=== PATIENT | male | born 1970 | race Caucasian/White ===

== ENCOUNTER 2022-02-14 14:26 | Emergency (ER) | payer OTHER ==
[2022-02-14 14:30] VITALS: BP 130/78; PULSE 92; RESP 14; TEMP 97.8
--- NOTE | 2022-02-14 14:53 | XR ---
EXAMINATION TYPE: XR foot complete RT DATE OF EXAM: 02/14/2022 COMPARISON: NONE HISTORY: Pain TECHNIQUE: Three views are submitted. FINDINGS: The osseous structures are intact. There is no acute fracture or dislocation. Joint spaces are p reserved. IMPRESSION: 1. No acute fracture or dislocation. If symptoms persist, follow-up exam in 7 to 10 days could be ob tained.
--- NOTE | 2022-02-14 16:07 | ED ---
Lower Extremity Injury HPI - General Chief Complaint: Extremity Injury, Lower Stated Complaint: R foot injury Time Seen by Provider: 02/14/22 14:30 Source: patient Mode of arrival: ambulatory Limitations: no limitations - History of Present Illness Initial Comments: 51-year-old male presents to the emergency department after he dropped a lawnmower trailer on his right fifth toe. Injury happened yesterday. Patient has been able to ambulate however it has been painful. Patient is wearing a loose fitting shoe. He has been able to ambulate. Taking Motrin for pain. He does have bruising and swelling to the fifth digit. Denies any other injuries. No other alleviating, precipitating or modifying factors - Related Data Home Medications Medication Instructions Recorded Confirmed lisinopriL [Zestril] 5 mg PO DAILY 05/09/14 10/10/15 ALPRAZolam [Xanax] 2 mg PO HS 10/10/15 10/10/15 HYDROcodone/APAP 10-325MG [[place] 1 tab PO Q6H PRN 10/10/15 10/10/15 10-325] Previous Rx's Medication Instructions Recorded Hydrocodone/Acetaminophen [[place] 1 each PO Q6HR PRN #8 tab 10/10/15 5-325] Ibuprofen [Motrin] 800 mg PO Q6HR PRN #30 tab 10/10/15 HYDROcodone/APAP 7.5-325MG [[place] 1 tab PO Q6HR PRN 3 Days #12 tab 02/14/22 7.5-325] Allergies Allergy/AdvReac Type Severity Reaction Status Date / Time No Known Allergies Allergy Verified 02/14/22 14:30 Review of Systems ROS Statement: Those systems with pertinent positive or pertinent negative responses have been documented in the HPI. ROS Other: All systems not noted in ROS Statement are negative. Past Medical History Past Medical History: Hypertension Additional Past Medical History / Comment(s): back pain History of Any Multi-Drug Resistant Organisms: None Reported Past Surgical History: No Surgical Hx Reported Past Psychological History: Anxiety Smoking Status: Current every day smoker Past Alcohol Use History: Rare Past Drug Use History: Marijuana General Exam Limitations: no limitations General appearance: alert, in no apparent distress Extremities exam: Present: tenderness (to the 5th digit right foot. digit is erythematous. compartments are soft. normal cap refill time. intact sensation over medial, dorsal and lateral foot. ) Course Vital Signs 02/14/22 14:27 Temperature 97.8 F Pulse Rate 92 Respiratory 14 Rate Blood Pressure 130/78 O2 Sat by Pulse 97 Oximetry Medical Decision Making - Medical Decision Making Upon arrival patient was seen in [facility]. Thorough history and physical exam was performed. X-ray was performed which demonstrates no acute fractures. Patient is placed in a re-shoe. Given a prescription for [place]. Instructed to alternate taking this with Motrin for pain control. Follow up with his primary care doctor in 7-10 days to have repeat imaging if the pain persists. Return for any new or worsening symptoms. Patient agrees treatment plan he is discharged home in stable condition Disposition Clinical Impression: Right foot pain, Crush injury Disposition: HOME SELF-CARE Condition: Stable Instructions (If sedation given, give patient instructions): Foot Sprain (ED) Additional Instructions: Please rest, ice and elevate the extremity. Alternate taking Motrin and [place] every 4 hours. Return in 7-10 days if your pain persists. Prescriptions: HYDROcodone/APAP 7.5-325MG [[place] 7.5-325] 1 tab PO Q6HR PRN 3 Days #12 tab PRN Reason: Pain Is patient prescribed a controlled substance at d/c from ED?: Yes When asked, does pt state using other controlled substances?: No If opioid is for acute pain is fill amount 7 days or less?: No If Rx opioid, was Start Talking consent form obtained?: No Referrals: None,Stated [Primary Care Provider] - 1-2 days Time of Disposition: 16:07
== END 2022-02-14 16:13 | disposition home or self-care (01) ==
LOC: EC 14:26
DX: M79.671 Pain in right foot (principal); I10 Essential (primary) hypertension; F17.200 Nicotine dependence, unspecified, uncomplicated
CPT/HCPCS: 99283

== ENCOUNTER 2023-09-01 16:05 | Emergency (ER) | payer OTHER ==
[2023-09-01 16:40] VITALS: TEMP 97.7
--- NOTE | 2023-09-01 17:02 | ED ---
Fall HPI - General Source: patient Mode of arrival: ambulatory <Mo Welch - Last Filed: 09/01/23 17:02> <Padmini Huitron - Last Filed: 09/01/23 18:57> - General Chief Complaint: Fall Stated Complaint: fall-[facility] - History of Present Illness Initial Comments: 52-year-old male presenting to the ED with a chief complaint of left shoulder injury. 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 States that he slipped on water causing him to fall onto his left side. States that his armpit landed directly onto a side chart. Now notes pain of the left shoulder/left chest where he landed. No head injury at this time. No other complaints. (Mo Welch) Patient is a 52-year-old male presented ER with chief complaint of left shoulder injury. Patient states he slipped on water at work and fell on a cart landing on his left shoulder/side. Patient denies any other injuries, blood thinner use, loss of consciousness. Patient reports he is in 9 out of 10 pain. Patient states he has limited range of motion due to the pain. Patient denies any paresthesias. (Padmini Huitron) - Related Data Home Medications Medication Instructions Recorded Confirmed lisinopriL [Zestril] 5 mg PO DAILY 05/09/14 10/10/15 ALPRAZolam [Xanax] 2 mg PO HS 10/10/15 10/10/15 HYDROcodone/APAP 10-325MG [[place] 1 tab PO Q6H PRN 10/10/15 10/10/15 10-325] Previous Rx's Medication Instructions Recorded Hydrocodone/Acetaminophen [[place] 1 each PO Q6HR PRN #8 tab 10/10/15 5-325] Ibuprofen [Motrin] 800 mg PO Q6HR PRN #30 tab 10/10/15 HYDROcodone/APAP 7.5-325MG [[place] 1 tab PO Q6HR PRN 3 Days #12 tab 02/14/22 7.5-325] Allergies Allergy/AdvReac Type Severity Reaction Status Date / Time No Known Allergies Allergy Verified 09/01/23 16:36 Review of Systems ROS Other: All systems not noted in ROS Statement are negative. <Mo Welch - Last Filed: 09/01/23 17:02> ROS Other: All systems not noted in ROS Statement are negative. <Padmini Huitron - Last Filed: 09/01/23 18:57> ROS Statement: Those systems with pertinent positive or pertinent negative responses have been documented in the HPI. Past Medical History Past Medical History: Hypertension Additional Past Medical History / Comment(s): back pain History of Any Multi-Drug Resistant Organisms: None Reported Past Surgical History: No Surgical Hx Reported Past Psychological History: Anxiety Smoking Status: Current every day smoker Past Alcohol Use History: Rare Past Drug Use History: Marijuana <Mo Welch - Last Filed: 09/01/23 17:02> General Exam Limitations: no limitations General appearance: alert, in no apparent distress Neck exam: Present: normal inspection Extremities exam: Present: normal inspection, other (Strength and sensation of left upper extremity intact. Left axilla does appear to be some ecchymosis and skin tear/abrasion. No obvious deformity.) <Mo Welch - Last Filed: 09/01/23 17:02> General appearance: alert, in no apparent distress Head exam: Present: atraumatic, normocephalic, normal inspection Neck exam: Present: normal inspection. Absent: tenderness, meningismus, lymphadenopathy Respiratory exam: Present: normal lung sounds bilaterally. Absent: respiratory distress, wheezes, rales, rhonchi, stridor Cardiovascular Exam: Present: regular rate, normal rhythm, normal heart sounds. Absent: systolic murmur, diastolic murmur, rubs, gallop, clicks Extremities exam: Present: normal inspection, tenderness (Left before meals joint), normal capillary refill, other. Absent: pedal edema, joint swelling, calf tenderness Neurological exam: Present: alert, oriented X3, CN II-XII intact Psychiatric exam: Present: normal affect, normal mood Skin exam: Present: warm, abrasion (2 left under arm. There is ecchymosis noted as well.) <Padmini Huitron - Last Filed: 09/01/23 18:57> Course Vital Signs 09/01/23 16:34 Temperature 97.7 F Pulse Rate 81 Respiratory 20 Rate Blood Pressure 168/80 O2 Sat by Pulse 98 Oximetry Medical Decision Making <Mo Welch - Last Filed: 09/01/23 17:02> - Radiology Data Radiology results: report reviewed, image reviewed <Padmini Huitron - Last Filed: 09/01/23 18:57> - Medical Decision Making Quicknote portion performed. Signed Mo Welch PA-C (Mo Welch) Was pt. sent in by a medical professional or institution (, PA, AUDIT MGR, urgent care, hospital, or care home...) When possible be specific @ -No Did you speak to anyone other than the patient for history (EMS, parent, family, police, friend...)? What history was obtained from this source @ -No Did you review nursing and triage notes (agree or disagree)? Why? @ -I reviewed and agree with nursing and triage notes Were old charts reviewed (outside hosp., previous admission, EMS record, old EKG, old radiological studies, urgent care reports/EKG's, care home records)? Report findings @ -No old charts were reviewed Differential Diagnosis (chest pain, altered mental status, abdominal pain women, abdominal pain men, vaginal bleeding, weakness, fever, dyspnea, syncope, headache, dizziness, GI bleed, back pain, seizure, CVA, palpatations, mental health, musculoskeletal)? @ -Differential Musculoskeletal: Muscular strain, contusion, ligament sprain, fracture, arthritis, septic arthritis, bursitis, cellulitis, muscle spasm, nerve compression, DVT, arterial occlusion, herpes zoster, electrolyte abnormality, tumor.... This is not meant to be in all inclusive listable EKG interpreted by me (3pts min.). @ -None X-rays interpreted by me (1pt min.). @ -X-ray of left shoulder shows no acute fractures or dislocations. Chest x- ray shows no acute cardiopulmonary process. Osseous structures are intact. CT interpreted by me (1pt min.). @ -None done U/S interpreted by me (1pt. min.). @ -None done What testing was considered but not performed or refused? (CT, X-rays, U/S, labs)? Why? @ -None What meds were considered but not given or refused? Why? @ -None Did you discuss the management of the patient with other professionals (professionals i.e. , MAURICIO, AUDIT MGR, lab, RT, psych nurse, administrator social welfare, manager credit risk, teacher, worldwide chief creative officer, lead case manager)? Give summary @ -No Was smoking cessation discussed for >3mins.? @ -No Was critical care preformed (if so, how long)? @ -No Were there social determinants of health that impacted care today? How? (Homelessness, low income, unemployed, alcoholism, drug addiction, transportation, low edu. Level, literacy, decrease access to med. care, senior living, rehab)? @ -No Was there de-escalation of care discussed even if they declined (Discuss DNR or withdrawal of care, Hospice)? DNR status @ -No What co-morbidities impacted this encounter? (DM, HTN, Smoking, COPD, CAD, Cancer, CVA, ARF, Chemo, Hep., AIDS, mental health diagnosis, sleep apnea, morbid obesity)? @ -Morbid obesity Was patient admitted / discharged? Hospital course, mention meds given and route, prescriptions, significant lab abnormalities, going to OR and other pertinent info. @ -Discharged. Patient's vitals were stable. Upon examination, tenderness to left AC joint was present. There was also an abrasion and ecchymosis under left arm. X-ray of left shoulder shows no acute fractures or dislocations. Chest x- ray shows no acute cardiopulmonary process. Osseous structures are intact. Patient received PO [place] in ER for pain control. Patient will be discharged in stable condition with follow-up to PCP. Patient expressed understanding and agreement with care plan. Undiagnosed new problem with uncertain prognosis? @ -No Drug Therapy requiring intensive monitoring for toxicity (Heparin, Nitro, Ins ulin, Cardizem)? @ -No Were any procedures done? @ -No Diagnosis/symptom? @ -Left shoulder contusion/abrasion Acute, or Chronic, or Acute on Chronic? @ -Acute Uncomplicated (without systemic symptoms) or Complicated (systemic symptoms)? @ -Uncomplicated Side effects of treatment? @ -No Exacerbation, Progression, or Severe Exacerbation? @ -No Poses a threat to life or bodily function? How? (Chest pain, [place], DC, pneumonia, PE, COPD, DKA, ARF, appy, cholecystitis, CVA, Diverticulitis, Homicidal, Suicidal, threat to staff... and all critical care pts) @ -No (Padmini Huitron) Disposition <Mo Welch - Last Filed: 09/01/23 17:02> Is patient prescribed a controlled substance at d/c from ED?: No Time of Disposition: 18:57 <Padmini Huitron - Last Filed: 09/01/23 18:57> Clinical Impression: Contusion of left shoulder Disposition: HOME SELF-CARE Condition: Stable Additional Instructions: Please return to the Emergency Department if symptoms worsen or any other concerns. Referrals: None,Stated [Primary Care Provider] - 1-2 days
--- NOTE | 2023-09-01 17:51 | XR ---
EXAMINATION TYPE: XR chest 2V DATE OF EXAM: 09/01/2023 COMPARISON: NONE HISTORY: Fall on left side, rule out fracture TECHNIQUE: Frontal and lateral views of the chest are obtained. FINDINGS: There is no focal air space opacity, pleural effusion, or pneumothorax seen. The cardiac silhouette size is within normal limits. The osseous structures are intact. IMPRESSION: No acute cardiopulmonary process. Osseous structures are intact.
--- NOTE | 2023-09-01 17:53 | XR ---
Left shoulder HISTORY: Pain following fall. COMPARISON: None TECHNIQUE: 3 views left shoulder were obtained. FINDINGS: There is no fracture, dislocation, intraosseous, intra-articular or soft tissue abnormality. IMPRESSION: No evidence of trauma. No significant abnormality.
[2023-09-01] MEDS ORDERED: HYDROcodone/APAP 5-325MG 1 EACH TAB PO STA (18:52)
[2023-09-01 19:34] VITALS: BP 163/89; PULSE 76; RESP 18
== END 2023-09-01 19:16 | disposition home or self-care (01) ==
LOC: EC 16:05
DX: S40.012A Contusion of left shoulder, initial encounter (principal); I10 Essential (primary) hypertension; F41.9 Anxiety disorder, unspecified; E66.01 Morbid (severe) obesity due to excess calories; F17.200 Nicotine dependence, unspecified, uncomplicated; F12.90 Cannabis use, unspecified, uncomplicated; Z68.42 Body mass index [BMI] 45.0-49.9, adult; Z79.899 Other long term (current) drug therapy; W01.0XXA Fall on same level from slipping, tripping and stumbling without subsequent striking against object, initial encounter; Y99.0 Civilian activity done for income or pay
CPT/HCPCS: 71046; 99284